=== PATIENT | male | born 1980 | race Caucasian/White ===

== ENCOUNTER 2019-04-21 11:43 | Emergency (ER) | payer MEDICARE ==
[2019-04-21 11:48] VITALS: BMI 31.2
[2019-04-21] MEDS ORDERED: KEFLEX500 MG PO (13:24)
[2019-04-21] MEDS ORDERED: VOLTAREN75 MG PO (13:24)
[2019-04-21] MEDS ORDERED: SILVADENE20 GM TP (13:24)
[2019-04-21] MEDS ORDERED: TYLENOL W/CODEI1 TAB PO (13:24)
[2019-04-21 13:45] VITALS: BP 133/86
== END 2019-04-21 13:48 | disposition home or self-care (01) ==
LOC: D.ER 11:43
DX: T21.22XA Burn of second degree of abdominal wall, initial encounter (principal); X08.8XXA Exposure to other specified smoke, fire and flames, initial encounter; Y93.89 Activity, other specified; Y92.89 Other specified places as the place of occurrence of the external cause